=== PATIENT | male | born 1990 ===

== ENCOUNTER 2017-01-07 14:09 | Emergency (ER) | payer BC ==
[2017-01-07 14:21] VITALS: BMI 25.1
[2017-01-07 14:25] VITALS: TEMP 98.2; O2SAT 98
[2017-01-07] MEDS ORDERED: Sodium Chloride 0.9% 1,000 ML IV STA (14:48)
--- NOTE | 2017-01-07 15:07 | ED PDOC ---
Arrival/HPI - General Historian: Patient - General Chief Complaint: Abdominal Pain Time Seen by Provider: 01/07/17 14:31 - History of Present Illness Narrative History of Present Illness (Text): 01/07/17 15:04 Patient no significant past medical presents to the ER c/o constipation for 5 days and decrease in urine output. States for the past week he has had a normal appetite, however noticed that he can no longer eat as much as he used to. Denies any fever, chills, abdominal pain, nausea, vomiting, diarrhea, dysuria, hematuria, changes in diet, recent travel, contacts, taking any medications. PMD ? name (Hannah Torres PA-C) Past Medical History - Provider Review Nursing Documentation Reviewed: Yes - Infectious Disease Hx of Infectious Diseases: None - Tetanus Immunization Tetanus Immunization: Unknown - Reproductive LMP Date: 05/28/16 - Cardiac Hx Cardiac Disorders: No - Pulmonary Hx Respiratory Disorders: Yes Hx Asthma: Yes - Neurological Hx Neurological Disorder: No - HEENT Hx HEENT Disorder: No - Renal Hx Renal Disorder: No - Endocrine/Metabolic Hx Endocrine Disorders: No - Hematological/Oncological Hx Blood Disorders: No - Integumentary Hx Dermatological Disorder: No - Musculoskeletal/Rheumatological Hx Musculoskeletal Disorders: No - Gastrointestinal Hx Gastrointestinal Disorders: No - Genitourinary/Gynecological Hx Genitourinary Disorders: No - Psychiatric Hx Psychophysiologic Disorder: No Hx Substance Use: Yes - Anesthesia Hx Anesthesia: No Family/Social History - Physician Review Nursing Documentation Reviewed: Yes Family/Social History: No Known Family HX Smoking Status: Light Smoker < 10 Cigarettes Daily Hx Alcohol Use: Yes Frequency of alcohol use: Socially Hx Substance Use: Yes Substance used: marijuana Allergies/Home Meds Allergies/Adverse Reactions: Allergies pollen extracts Allergy (Mild, Verified 01/07/17 14:21) SWELLING CATS Allergy (Uncoded 01/07/17 14:21) SWELLING Review of Systems - Review of Systems Constitutional: Normal. absent: Fatigue, Weight Change, Fevers Respiratory: Normal. absent: SOB, Cough, Sputum Cardiovascular: Normal. absent: Chest Pain, Palpitations, Edema Gastrointestinal: Normal, Constipation (for 5 days), Appetite Changes (for 1 week). absent: Abdominal Pain Genitourinary Male: Normal, Urinary Output Changes (decrease in urine output). absent: Dysuria, Frequency, Hematuria Musculoskeletal: Normal. absent: Arthralgias, Back Pain, Neck Pain Skin: Normal. absent: Rash, Pruritis, Skin Lesions Physical Exam Vital Signs Reviewed: Yes Temperature: Afebrile Blood Pressure: Normal Pulse: Regular Respiratory Rate: Normal Appearance: Positive for: Well-Appearing, Non-Toxic, Comfortable Pain Distress: None Mental Status: Positive for: Alert and Oriented X 3 - Systems Exam Head: Present: Atraumatic, Normocephalic Pupils: Present: PERRL Extroacular Muscles: Present: EOMI Conjunctiva: Present: Normal Mouth: Present: Moist Mucous Membranes Neck: Present: Normal Range of Motion. No: MIDLINE TENDERNESS Respiratory/Chest: Present: Clear to Auscultation, Good Air Exchange. No: Respiratory Distress, Accessory Muscle Use, Wheezes, Rhonchi Cardiovascular: Present: Regular Rate and Rhythm, Normal S1, S2. No: Murmurs Abdomen: Present: Normal Bowel Sounds. No: Tenderness, Distention, Peritoneal Signs, Rebound, Guarding, Mass/Organomegaly Rectal: Present: Normal Rectal Tone, Other (no fecal impaction, male EMT was present during the entire exam ). No: Rectal Tenderness, Hemorrhoids Back: Present: Normal Inspection. No: CVA Tenderness, Midline Tenderness Upper Extremity: Present: Normal Inspection, Normal ROM, NORMAL PULSES. No: Edema Lower Extremity: Present: Normal Inspection, NORMAL PULSES, Normal ROM. No: Edema Neurological: Present: GCS=15, CN II-XII Intact, Speech Normal Skin: Present: Warm, Dry, Normal Color. No: Rashes Psychiatric: Present: Alert, Oriented x 3, Normal Insight, Normal Concentration Vital Signs Temp Pulse Resp BP Pulse Ox 01/07/17 16:32 65 18 113/68 98 01/07/17 15:07 61 18 115/71 98 01/07/17 14:24 98.2 F 62 19 117/77 98 Medical Decision Making - Lab Interpretations I have reviewed the lab results: Yes (K 3.4) ED Course and Treatment: I was available for consultation during PA evaluation. The chart was reviewed by me, and I agree with disposition. The documented history was done by the physician smt machine operator. The documented physical exam was done by the physician smt machine operator. The documented procedures were done by the physician smt machine operator. (Rohan Day) 01/07/17 15:02 26 yo M presents with 5 day h/o constipation with decrease in urine output. To r /o fecal impaction, likely constipation. Plan: - Labs - UA - AXR - NS bolus 01/07/17 16:45 On re-evaluation, patient is resting comfortably in no acute distress. Reports no abdominal pain at this time. Patient able to provide a urine sample in the ER. On exam, abdomen remains soft with no tenderness, no guarding, no rebound. Labs wnl, UA (-), AXR reviewed, shows moderate constipation. Labs and AXR results discussed with the patient in great detail. Given KCL for K 3.4. Rx for miralax provided to the patient. Advised to drink plenty of water, increase fiber intake and to take miralax as prescribed. Pt advised to follow up with pmd in 2 days without fail. Patient states he fully agrees with and understands discharge instructions. States that he agrees with the plan and disposition. Verbalized and repeated discharge instructions and plan. I have given the patient opportunity to ask any additional questions. Follow up with primary care physician in 1-2 days without fail. Advised to take medication as prescribed. Return to the emergency room at any time for any new or worsening symptoms. (Brian GOMEZ,Hannah Palumbo) - Lab Interpretations Lab Results: 01/07/17 15:25 01/07/17 15:25 Lab Results 01/07/17 16:30: Urine Color Yellow, Urine Appearance Clear, Urine pH 7.0, Ur Specific [place] 1.010, Urine Protein Negative, Urine Glucose (UA) Negative, Urine Ketones Negative, Urine Blood Negative, Urine Nitrate Negative, Urine Bilirubin Negative, Urine Urobilinogen 0.2, Ur Leukocyte Esterase Negative 01/07/17 15:25: Sodium 141, Potassium 3.4 L, Chloride 105, Carbon Dioxide 27, Anion Gap 12, BUN 7, Creatinine 0.8, Est GFR ( Amer) > 60, Est GFR (Non- Af Amer) > 60, Random Glucose 95, Calcium 9.6, Total Bilirubin 0.9, AST 29, ALT 41, Alkaline Phosphatase 63, Total Protein 7.8, Albumin 4.7, Globulin 3.1, Albumin/Globulin Ratio 1.5, Lipase 131 01/07/17 15:25: WBC 6.7, RBC 4.83, Hgb 15.9, Hct 45.5, MCV 94.2, MCH 32.9, MCHC 34.9, RDW 12.1, Plt Count 255, MPV 10.5, Gran % 69.3 H, Lymph % (Auto) 20.9 L, [place] % (Auto) 7.3 H, Eos % (Auto) 2.2, Baso % (Auto) 0.3, Gran # 4.64, Lymph # 1.4, [place] # 0.5, Eos # 0.2, Baso # 0.02 - RAD Interpretation Narrative RAD Interpretations (Text): 01/07/17 16:57 AXR: (+) FOS, (-) air fluid levels, as read by PA (Brian GOMEZ,Hannah Palumbo) Radiology Orders: 01/07/17 14:48 ABD 2 VIEWS (FLAT/UP OR DECUB) [RAD] Stat - Medication Orders Current Medication Orders: Discontinued Medications Sodium Chloride (Sodium Chloride 0.9%) 1,000 mls @ 1,000 mls/hr IV .Q1H STA Stop: 01/07/17 15:47 Last Admin: 01/07/17 15:28 Dose: 1,000 mls/hr Potassium Chloride (Potassium Chloride Oral Soln) 40 meq PO STAT STA Stop: 01/07/17 16:03 Last Admin: 01/07/17 17:06 Dose: 40 meq - PA / 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 Disposition/Present on Arrival - Present on Arrival Any Indicators Present on Arrival: No History of DVT/PE: No History of Uncontrolled Diabetes: No Urinary Catheter: No History of Decub. Ulcer: No History Surgical Site Infection Following: None - Disposition Have Diagnosis and Disposition been Completed?: Yes Disposition Time: 16:54 Patient Plan: Discharge - Disposition Diagnosis: Constipation, Difficulty urinating Disposition: HOME/ ROUTINE Condition: STABLE Discharge Instructions (ExitCare): Constipation (ED) Print Language: NEPALESE Additional Instructions: Thank you for letting us take care of you today. You were treated for constipation. The emergency medical care you received today was directed at your acute symptoms. If you were prescribed any medication, please fill it and take as directed. It may take several days for your symptoms to resolve. Return to the Emergency Department if your symptoms worsen, do not improve, or if you have any other problems. Please contact your doctor in 2 days for re-evaluation and follow up. Bring any paperwork you were given at discharge with you along with any medications you are taking to your follow up visit. Our treatment cannot replace ongoing medical care by a primary care provider (PCP) outside of the emergency department. Thank you for allowing the [facility] team to be part of your care today. Prescriptions: Polyethylene Glycol 3350 [Miralax] 17 pow PO DAILY #20 each Referrals: PCP,NO [Primary Care Provider] - Follow up with primary Forms: SCHOOL NOTE
[2017-01-07 15:08] VITALS: RESP 18
[2017-01-07 15:45] LABS: ALB/GLOB RATIO 1.5 (1.1-1.8); ALBUMIN 4.7 g/dL (3.0-4.8); ALT/SGPT 41 U/L (7-56); AST/SGOT 29 U/L (15-59); BLOOD UREA NITROGEN 7 mg/dL (7-21); CALCIUM 9.6 mg/dL (8.4-10.5); GFR AFRICAN-AMERICAN > 60; GFR NON-AFRICAN AMERICAN > 60; LIPASE 131 U/L (23-300)
[2017-01-07 15:50] LABS: BASO # 0.02 K/mm3 (0.0-2.0); BASO % 0.3 % (0.0-3.0); EOS # 0.2 (0.0-0.7); EOS % 2.2 % (1.5-5.0); GRAN # 4.64 (1.4-6.5); GRAN % 69.3 % (50.0-68.0); HEMOGLOBIN 15.9 gm/dL (14.0-18.0); LYMPH # 1.4 (1.2-3.4); LYMPH % 20.9 % (22.0-35.0); MEAN CELL VOLUME 94.2 fL (80.0-105.0); MEAN CORPUSCULAR HEMOGLOBIN 32.9 pg (25.0-35.0); MEAN CORPUSCULAR HGB CONC 34.9 g/dl (31.0-37.0); MEAN PLATELET VOLUME 10.5 fl (7.0-11.0); MONO # 0.5 (0.1-0.6); MONO % 7.3 % (1.0-6.0); PLATELET COUNT 255 10^3/uL (120.0-450.0); RBC 4.83 10^6/uL (3.5-6.1); RED CELL DISTRIBUTION WIDTH 12.1 % (11.5-14.5); WHITE BLOOD COUNT 6.7 10^3/ul (4.5-11.0)
[2017-01-07] MEDS ORDERED: Potassium Chloride 20 mEq/15 ml LIQ UD PO STA (16:02)
[2017-01-07 16:33] VITALS: BP 113/68; PULSE 65
[2017-01-07 16:40] LABS: URINE BILIRUBIN NEGATIVE (NEGATIVE); URINE BLOOD NEGATIVE (NEGATIVE); URINE GLUCOSE (UA) NEGATIVE (NEGATIVE); URINE LEUKOCYTE ESTERASE NEGATIVE Leu/uL (NEGATIVE); URINE NITRATE NEGATIVE (NEGATIVE); URINE PROTEIN NEGATIVE mg/dL (<30 mg/dL); URINE UROBILINOGEN 0.2 E.U./dL (<1 E.U./dL)
[2017-01-07 16:41] LABS: URINE APPEARANCE CLEAR (CLEAR); URINE COLOR YELLOW (YELLOW)
--- NOTE | 2017-01-07 17:55 | RAD ---
HISTORY: constipation COMPARISON: No prior. FINDINGS: BOWEL: There is moderate amount of stool scattered throughout the colon. There is no evidence of bowel dilatation or differential air-fluid levels. No in free intraperitoneal air. BONES: Normal. OTHER FINDINGS: None. IMPRESSION: Constipation. Nonobstructive bowel gas pattern.
== END 2017-01-07 17:31 | disposition home or self-care (01) ==
LOC: ED 14:09
DX: K59.00 Constipation, unspecified (principal); R39.198 Other difficulties with micturition
CPT/HCPCS: 74020; 80053; 81003; 83690; 85025; 99283; J7040